=== PATIENT | female | born 2005 ===

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

== ENCOUNTER 2024-01-02 01:26 | Emergency (ER) | payer OTHER, SELFPAY ==
[2024-01-02 01:30] VITALS: BP 108/70
--- NOTE | 2024-01-02 02:01 | ED.GENMED ---
History of Present Illness
General
Chief Complaint: Eye Problems
Source: patient
Exam Limitations: none
Time Seen by Provider: 01/02/24 01:41
Nursing documentation reviewed up to this point in time: agreed with
History of Present Illness
History of Present Illness:
18 yr old female presents to the ER complaining of itching to her right eye for the past several weeks. She also notes that she wakes up with crusting scaling skin to her right inner eye. She denies any eye pain or difficulty with vision. She
does not wear contacts. Denies any fever or chills.
Review of Systems
Review of Systems
Allergies reviewed?: Yes
All Other Systems: ROS reviewed and negative except as documented in HPI and ROS
Constitutional: Reports no symptoms
EENT: Reports other (Right eye itchy with scaling skin)
Musculoskeletal: Reports no symptoms
Skin: Reports other (scally skin to right inner eye)
Psychiatric: Reports no symptoms
Phy Exam
General Physical Exam
General Presentation: no apparent distress
General age: appears stated age
General Skin: warm and dry
General Habitus: normal
General Mental: alert
General Hydration: appears well hydrated
Eye Exam
Eye Exam: PERRL, EOMI and other (right eye conjunctiva mildly injected )
Able to obtain acuity?: Yes
Eye Exam General: PERRL: bilateral and EOM intact: bilateral
Pupil Exam: Bilateral: round and reactive
Musculoskeletal Exam
Musculoskeletal Exam: full ROM
Skin Exam
Skin Exam: normal color and warm/dry
Psychiatric Exam
Psychiatric Exam: normal mood/affect
Course
Orders/Labs/Results
Orders:
Orders
01/02/24 02:01
Erythromycin (Ilotycin) [Erythromycin 0.5% Ophthalmic Ointment] See Dose Instructions OPHTH NOW STA
Vital Signs
Initial and Last Documented VS:
Initial Vital Signs
Temp Pulse Resp BP Pulse Ox
98.6 F 72 20 108/70 100
01/02/24 01:30 01/02/24 01:30 01/02/24 01:30 01/02/24 01:30 01/02/24 01:30
Last Documented Vital Signs
Temp Pulse Resp BP Pulse Ox
98.6 F 72 20 108/70 100
01/02/24 01:30 01/02/24 01:30 01/02/24 01:30 01/02/24 01:30 01/02/24 01:30
MDM/Problems Addressed
MDM/Problems Addressed:
Patient is a 89-year-old female who presented with complaints of itching right eye and some scaling skin to the right in her eye when she wakes up in the morning for the past several weeks she has no scaling skin or redness to the outside of the eye
presently conjunctiva is very minimally injected. No drainage. No contacts. Patient does have a picture of what her eye looks like in the morning and there is a small scaling to the area that she picks off. Will DC with E-Mycin ointment however
will have patient follow-up with master sheet clerk for further reevaluation and treatment. This possibly could be eczema however will hold off on any steroids until master sheet clerk does evaluate patient.
*Critical Care Note
Total Time (30-74mins, 75-104mins- exclusive of procedures): Not Applicable
ED Attending Note
-
Portions of this chart may have been created with voice recognition software.� Occasional wrong word or��sound alike� substitutions may have occurred due to the inherent limitations of voice recognition software.
Discharge Plan
Departure
Patient Disposition: Home (Routine Discharge)
Date of Disposition: 01/02/24
Time of Disposition: 02:06
Patient with high blood pressure during this ER visit?: No
Condition: Fair
Covid-19: Not Applicable
Discharge Problem:
Irritation of eye
Referrals:
Vishnu Anand MD [Active] -
Activity Restrictions/Additional Instructions:
Follow-up with ophthalmology as discussed. Call tomorrow to make an appointment.
Use erythromycin ophthalmic ointment into your right eye: apply small amount ( 1 cm) in your right eye every 6 hrs . Return if any worsening of symptoms.
Interventions
Interventions:
*Risk Screen - Suicide Last Done: 01/02/24 01:30
*General Assessment Last Done: 01/02/24 02:06
*Neglect/Abuse Screening Last Done: 01/02/24 01:30
*ED COVID-19 Vaccine History Last Done: 01/02/24 01:30
Discharge Date and Time
Print Language: [id number]
[2024-01-02 02:06] VITALS: BMI 21.3
[2024-01-02 02:16] VITALS: BP 104/64
[2024-01-02] MEDS: ERYTHROMYCIN 0.5% OPHTHALMIC OINTMENT 1 APPLIC OPHTH (02:25)
== END 2024-01-02 02:39 | disposition home or self-care (01) ==
LOC: EMR 01:26
PROVIDERS: EMERGENCY PHYSICIAN Emergency Medicine
DX: H57.89 Other specified disorders of eye and adnexa (principal)
CPT/HCPCS: 99283